=== PATIENT | female | born 1940 | race Caucasian/White ===

== ENCOUNTER 2019-01-05 05:51 | Emergency (ER) | payer OTHER, MEDICARE, BC ==
--- NOTE | 2019-01-05 06:41 | EDM.PDOC ---
ED HPI GENERAL MEDICAL PROBLEM - General Chief Complaint: General Stated Complaint: shoulder pain s/p fall Time Seen by Provider: 01/05/19 06:20 Source of Information: Reports: Patient History Limitations: Reports: No Limitations - History of Present Illness INITIAL COMMENTS - FREE TEXT/NARRATIVE: This patient is a 78 year old female that presents to the ER. Patient reports that she was walking into work when she tripped and fell into the brick on her left shoulder. Patient does NOT take blood thinners. Patient reports only pain complaint is to the right upper arm. Patient denies hitting head, loc, n, v, vision changes, headache, dizziness, lightheaded, neck pain, back pain, chest pain, shortness of breath, abd pain, hp/pelvis pain, legs pain. Patient is alert and oriented. She is conversing in full and complete sentences without difficulty. She is ambulatory in the department without issues. Onset: Today Onset Date: 01/05/19 Onset Time: 05:45 Location: Reports: Upper Extremity, Right Front/Back Body Image: 1 - pain, tenderness. Quality: Reports: Ache Severity: Moderate Improves with: Reports: Immobilization Worsens with: Reports: Movement Associated Symptoms: Denies: Confusion, Chest Pain, Cough, cough w sputum, Diaphoresis, Fever/Chills, Headaches, Loss of Appetite, Malaise, Nausea/Vomiting , Rash, Seizure, Shortness of Breath, Syncope, Weakness Right Upper Arm Pain Score (Numeric/FACES): 7 - Related Data Allergies Allergy/AdvReac Type Severity Reaction Status Date / Time No Known Allergies Allergy Verified 01/05/19 05:52 Home Meds: Home Meds Calcium Carb & Citrate/Vit D3 [Calcium + Vitamin D3 Caplet] 1 each PO DAILY 09/17 [History] Hydrocodone/Acetaminophen [[place] 5-325] 1 tab PO Q4H PRN 07/09/13 [History] Ibuprofen 800 mg PO BID PRN 07/09/13 [History] Lisinopril/Hydrochlorothiazide [Lisinopril-Hctz 20-25 mg Tab] 1 each PO DAILY [History] Metoprolol Succinate 100 mg PO BID 07/09/13 [History] Multivitamin [Multi Vitamin Daily] 1 each PO DAILY 07/09/13 [History] cloNIDine [cloNIDine HCl] 0.1 mg PO TID 07/09/13 [History] traMADol [Ultram] 50 mg PO Q6H PRN 07/09/13 [History] Past Medical History Cardiovascular History: Reports: High Cholesterol, Hypertension - Past Surgical History HEENT Surgical History: Reports: Tonsillectomy GI Surgical History: Reports: Bariatric Procedure Female Surgical History: Reports: Hysterectomy Musculoskeletal Surgical History: Reports: Knee Replacement, Shoulder Replacement Social & Family History - Family History Family Medical History: Noncontributory - Tobacco Use Smoking Status *Q: Never Smoker Second Hand Smoke Exposure: No ED ROS GENERAL - Review of Systems Review Of Systems: See Below Constitutional: Reports: No Symptoms HEENT: Reports: No Symptoms Respiratory: Reports: No Symptoms Cardiovascular: Reports: No Symptoms Endocrine: Reports: No Symptoms GI/Abdominal: Reports: No Symptoms : Reports: No Symptoms Musculoskeletal: Reports: Shoulder Pain (right anterior), Arm Pain (right upper arm) Skin: Reports: No Symptoms Neurological: Reports: No Symptoms Psychiatric: Reports: No Symptoms Hematologic/Lymphatic: Reports: No Symptoms Immunologic: Reports: No Symptoms ED EXAM, GENERAL - Physical Exam Exam: See Below Exam Limited By: No Limitations General Appearance: Alert, WD/WN, No Apparent Distress Eye Exam: Left Eye: Other (periorbital inferior eccyhmosis OLD), Bilateral Eye: EOMI, Normal Inspection, PERRL Ears: Normal External Exam, Normal Canal, Hearing Grossly Normal, Normal TMs Ear Exam: Bilateral Ear: Auricle Normal, Canal Normal, TM normal Nose: Normal Inspection, Normal Mucosa, No Blood Throat/Mouth: Normal Inspection, Normal Lips, Normal Teeth, Normal Gums, Normal Oropharynx, Normal Voice, No Airway Compromise Head: Atraumatic, Normocephalic. No: Facial Swelling, Facial Tenderness, Sinus Tenderness Neck: Normal Inspection, Non-Tender, Full Range of Motion Respiratory/Chest: No Respiratory Distress, Lungs Clear, Normal Breath Sounds, No Accessory Muscle Use, Chest Non-Tender Cardiovascular: Normal Peripheral Pulses, Regular Rate, Rhythm, No Edema, No Gallop, No JVD, No Murmur Peripheral Pulses: 2+: Brachial (L), Brachial (R), Radial (L), Radial (R), Posterior Tibial (L), Posterior Tibial (R) GI/Abdominal: Normal Bowel Sounds, Soft, Non-Tender, No Organomegaly, No Distention, No Abnormal Bruit, No Mass, Pelvis Stable Back Exam: Normal Inspection, Full Range of Motion. No: CVA Tenderness (L), CVA Tenderness (R), Decreased Range of Motion, Muscle Spasm, Paraspinal Tenderness, Vertebral Tenderness Extremities: No Pedal Edema, Normal Capillary Refill, Limited Range of Motion ( right shoulder due to pain. Has in arm sling position), Other (Pain, tenderness , decreased ROM due to pain to the right proximal upper arm, right anterior shoulder. No obvious dislocation) Neurological: Alert, Oriented, Normal Cognition, Normal Gait, No Motor/Sensory Deficits Psychiatric: Normal Affect, Normal Mood Skin Exam: Warm, Dry, Intact, Normal Color, No Rash Lymphatic: No Adenopathy Course - Vital Signs Last Recorded V/S: Last Vital Signs Temp 98.4 F 01/05/19 05:53 Pulse 90 01/05/19 05:53 Resp 18 01/05/19 05:53 BP 180/87 H 01/05/19 05:53 Pulse Ox 98 01/05/19 05:53 - Orders/Labs/Meds Orders: Active Orders 24 hr Category Date Time Status Shoulder Comp Rt [CR] Stat Exams 01/05/19 06:31 Taken - Radiology Interpretation Free Text/Narrative:: Right shoulder xray: No dislocation. There is proximal humerus fx, mildly displaced. Comminuted. - Re-Assessments/Exams Free Text/Narrative Re-Assessment/Exam: 01/05/19 0630 I called and spoke to Dr. Vidales orthopedic at [facility]. He reports to arm sling and discharge to see orthopedic. Nonoperative. Departure - Departure Time of Disposition: 06:42 Disposition: Home, Self-Care 01 Condition: Fair Clinical Impression: Fracture, humerus closed Qualifiers: Encounter type: initial encounter Humerus Location: proximal Fracture morphology: other fracture Fracture alignment: nondisplaced Laterality: right Qualified Code(s): S42.294A - Other nondisplaced fracture of upper end of right humerus, initial encounter for closed fracture Fall Qualifiers: Encounter type: initial encounter Qualified Code(s): W19.XXXA - Unspecified fall, initial encounter - Discharge Information *PRESCRIPTION DRUG MONITORING PROGRAM REVIEWED*: Not Applicable *COPY OF PRESCRIPTION DRUG MONITORING REPORT IN PATIENT NOEMI: Not Applicable Instructions: Humerus Fracture Treated With Immobilization, [id number], Fall Prevention in Hospitals, Adult Referrals: Joseph Beauchamp MD [Primary Care Provider] - Forms: ED Department Discharge Additional Instructions: Followup with orthopedic: Call Dr. Garcia Sunday to be seen this week Followup with your primary care provider Return to the ER for worsening of condition or any emergent concerns Rest Ice Elevate Sling in place May take your [place] every 6 hours as needed for pain - My Orders Last 24 Hours: My Active Orders 01/05/19 06:31 Shoulder Comp Rt [CR] Stat - Assessment/Plan Last 24 Hours: My Active Orders 01/05/19 06:31 Shoulder Comp Rt [CR] Stat Plan: PLEASE SEE RN NOTE FOR PFSH.
== END 2019-01-05 06:55 | disposition home or self-care (01) ==
LOC: CC.ED 05:51
DX: S42.294A Other nondisplaced fracture of upper end of right humerus, initial encounter for closed fracture (principal); I10 Essential (primary) hypertension; Z96.619 Presence of unspecified artificial shoulder joint; Z79.899 Other long term (current) drug therapy; W01.10XA Fall on same level from slipping, tripping and stumbling with subsequent striking against unspecified object, initial encounter; Y99.0 Civilian activity done for income or pay
CPT/HCPCS: 73030-RT; 99283-25

== ENCOUNTER 2019-06-24 07:24 | Emergency (ER) | payer MEDICARE, BC ==
[2019-06-24 07:52] LABS: PTT,PARTIAL THROMBOPLSTIN TIME 26.1 SEC (23.2-32.3)
[2019-06-24 07:59] LABS: CHLORIDE,CL 106 mEq/L (98-106); SODIUM,NA 140 mEq/L (136-145)
[2019-06-24] MEDS ORDERED: cloNIDine 0.1 MG Tab PO ONE (08:07)
[2019-06-24] MEDS ORDERED: Metoprolol Succinate 100 MG Tab.ER PO ONE (08:09)
[2019-06-24] MEDS ORDERED: Hydrochlorothiazide 25 MG Tab PO ONE (08:10)
[2019-06-24] MEDS ORDERED: Lisinopril 20 MG Tab PO ONE (08:11)
--- NOTE | 2019-06-24 08:20 | EDM.PDOC ---
ED HPI GENERAL MEDICAL PROBLEM - General Chief Complaint: Neurological Problem Stated Complaint: FACE NUMB/HAND TINGLING Time Seen by Provider: 06/24/19 08:00 Source of Information: Reports: Patient History Limitations: Reports: No Limitations - History of Present Illness INITIAL COMMENTS - FREE TEXT/NARRATIVE: Alesia is a pleasant 78 year old female, with PMH of hypertension and CKD, who presents ambulatory to the ED with c/o intermittent right upper extremity and right facial numbness/tingling. Last known well yesterday evening 06/23/2019 at 2000. She reports initially she felt as if her whole arm was numb, but now it is just her finger tips. She reports she just "did not feel well enough to go to work this morning." She reports she is otherwise feeling well. Denies any dizziness, malaise, weakness, headache, N/V/D, chest pain, shortness of breath. No recent illness. Denies any history of CVA. Did not take her BP medications this morning. NIH 1 due to visual field defect. Onset Date: 06/23/19 Onset Time: 20:00 Duration: Intermittent Location: Reports: Face, Lower Extremity, Right Associated Symptoms: Reports: No Other Symptoms. 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: EKG, IV/IO - Related Data Allergies Allergy/AdvReac Type Severity Reaction Status Date / Time No Known Allergies Allergy Verified 06/24/19 07:48 Home Meds: Home Meds Calcium Carb & Citrate/Vit D3 [Calcium + Vitamin D3 Caplet] 1 each PO DAILY 09/17 [History] Hydrocodone/Acetaminophen [[place] 5-325] 1 tab PO Q4H PRN 07/09/13 [History] Ibuprofen 800 mg PO BID PRN 07/09/13 [History] Lisinopril/Hydrochlorothiazide [Lisinopril-Hctz 20-25 mg Tab] 1 each PO DAILY [History] Metoprolol Succinate 100 mg PO BID 07/09/13 [History] Multivitamin [Multi Vitamin Daily] 1 each PO DAILY 07/09/13 [History] cloNIDine [cloNIDine HCl] 0.1 mg PO TID 07/09/13 [History] traMADol [Ultram] 50 mg PO Q6H PRN 07/09/13 [History] Past Medical History HEENT History: Reports: Impaired Vision Other HEENT History: wears glasses Cardiovascular History: Reports: High Cholesterol, Hypertension - Past Surgical History HEENT Surgical History: Reports: Tonsillectomy GI Surgical History: Reports: Bariatric Procedure Female Surgical History: Reports: Hysterectomy Musculoskeletal Surgical History: Reports: Knee Replacement, Shoulder Replacement Social & Family History - Family History Family Medical History: Noncontributory - Tobacco Use Smoking Status *Q: Never Smoker Second Hand Smoke Exposure: No - Caffeine Use Caffeine Use: Reports: None - Recreational Drug Use Recreational Drug Use: No ED ROS GENERAL - Review of Systems Review Of Systems: See Below Constitutional: Denies: Fever, Malaise, Weakness, Fatigue, Diaphoresis, Decreased Appetite, Weight Loss HEENT: Reports: Vision Change (right eye). Denies: Ear Pain, Eye Discharge, Eye Pain, Rhinitis, Sinus Problem, Throat Pain Respiratory: Denies: Shortness of Breath, Wheezing, Pleuritic Chest Pain, Cough , Sputum, Hemoptysis Cardiovascular: Reports: No Symptoms. Denies: Chest Pain, Dyspnea on Exertion, Edema, Lightheadedness, Palpitations, Syncope Endocrine: Reports: No Symptoms. Denies: Fatigue, High Glucose, Low Glucose, Polydypsia, Polyuria GI/Abdominal: Reports: No Symptoms. Denies: Abdominal Pain, Constipation, Diarrhea, Decreased Appetite, Hematemesis, Hematochezia, Melena, Nausea, Vomiting : Reports: No Symptoms. Denies: Dysuria, Frequency, Urgency Musculoskeletal: Reports: No Symptoms. Denies: Neck Pain, Arm Pain, Leg Pain Skin: Reports: No Symptoms Neurological: Reports: Numbness, Paresthesia, Tingling. Denies: Confusion, Dizziness, Headache, Pre-Existing Deficit, Tremors, Difficulty Walking, Weakness , Change in Speech, Gait Disturbance Psychiatric: Denies: Anxiety Hematologic/Lymphatic: Reports: No Symptoms Immunologic: Reports: No Symptoms ED EXAM, NEURO - Physical Exam Exam: See Below Exam Limited By: No Limitations General Appearance: Alert, WD/WN, No Apparent Distress Eye Exam: Right Eye: Vision Changes (unable to visualize from right periphery), Bilateral Eye: EOMI, Normal Fundi, Normal Inspection Ears: Normal External Exam, Normal Canal, Hearing Grossly Normal, Normal TMs Nose: Normal Inspection, Normal Mucosa, No Blood Throat/Mouth: Normal Inspection, Normal Lips, Normal Teeth, Normal Gums, Normal Oropharynx, Normal Voice, No Airway Compromise Head Exam: Atraumatic, Normocephalic Neck: Normal Inspection, Supple, Non-Tender, Full Range of Motion Respiratory/Chest: No Respiratory Distress, Lungs Clear, Normal Breath Sounds, No Accessory Muscle Use, Chest Non-Tender Cardiovascular: Normal Peripheral Pulses, Regular Rate, Rhythm, No Edema, No Gallop, No JVD, No Murmur, No Rub GI/Abdominal: Normal Bowel Sounds, Soft, Non-Tender, No Organomegaly, No Distention, No Abnormal Bruit, No Mass Neurological: Alert, Normal Mood/Affect, Normal Dorsiflexion, CN II-XII Intact, Normal Plantar Flexion, Normal Gait, Normal Reflexes, Oriented x 3, Abnormal Sensation, Other (N/T to right finger tips, able to differentiate sharp/dull on RUE). No: Abnormal Finger to Nose, Abnormal Light Touch, Abnormal Motor, Abnormal Pin Prick, Tremor Back Exam: Normal Inspection, Full Range of Motion, NT Extremities: Normal Inspection, Normal Range of Motion, Non-Tender, No Pedal Edema, Normal Capillary Refill Psychiatric: Normal Affect, Normal Mood Skin Exam: Warm, Dry, Intact, Normal Color, No Rash Course - Vital Signs Last Recorded V/S: Last Vital Signs Temp 97.0 F 06/24/19 07:30 Pulse 60 06/24/19 08:19 Resp 20 06/24/19 07:30 BP 192/92 H 06/24/19 08:19 Pulse Ox 98 06/24/19 07:30 - Orders/Labs/Meds Orders: Active Orders 24 hr Category Date Time Status Head wo Cont [CT] Routine Exams 06/24/19 Taken Labs: Laboratory Tests 06/24/19 06/24/19 06/24/19 Range/Units 07:38 07:38 07:38 WBC 5.6 (5.0-10.0) 10^3/uL RBC 4.52 (4.00-5.50) 10^6/uL Hgb 11.5 L (12.0-16.0) g/dL Hct 38.7 (37.0-47.0) % MCV 85.6 (82.0-94.0) fL MCH 25.4 L (27.0-32.0) pg MCHC 29.7 L (33.0-38.0) g/dL RDW Coeff of Anderson 15.1 H (11.0-15.0) % Plt Count 302 (150-400) 10^3/uL Neut % (Auto) 68.7 (35-85) % Lymph % (Auto) 18.1 (10-55) % Sutton % (Auto) 8.4 (0-16) % Eos % (Auto) 4.3 (0-5) % Baso % (Auto) 0.5 (0-3) % Neut # (Auto) 3.82 (1.80-7.00) 10^3/uL Lymph # (Auto) 1.01 (1.00-4.80) 10^3/uL Sutton # (Auto) 0.47 (0.00-0.80) 10^3/uL Eos # (Auto) 0.24 (0.00-0.45) 10^3/uL Baso # (Auto) 0.03 10^3/uL PT 10.0 (9.7-12.3) SEC INR 0.97 (0.92-1.18) APTT 26.1 (23.2-32.3) SEC Sodium 140 (136-145) mEq/L Potassium 4.7 (3.5-5.0) mEq/L Chloride 106 (98-106) mEq/L Carbon Dioxide 24 (21-32) mmol/L BUN 30 H (7-18) mg/dL Creatinine 2.3 H (0.6-1.0) mg/dL Est Cr Clr Drug Dosing 17.85 mL/min Estimated GFR (MDRD) 20 L (>=60) mL/min Glucose 96 (75-99) mg/dL Calcium 8.5 (8.4-10.1) mg/dL Creatine Kinase 85 (21-215) U/L Troponin I < 0.017 (0.00-0.06) ng/mL Meds: Medications Discontinued Medications Generic Name Dose Route Start Last Admin Trade Name Freq PRN Reason Stop Dose Admin Aspirin 324 mg 06/24/19 08:51 06/24/19 09:20 Aspirin PO 06/24/19 08:52 324 mg ONETIME ONE Administration Clonidine HCl 0.1 mg 06/24/19 08:07 06/24/19 08:18 Catapres PO 06/24/19 08:08 0.1 mg STAT ONE Administration Hydrochlorothiazide 25 mg 06/24/19 08:10 06/24/19 08:19 Hydrochlorothiazide PO 06/24/19 08:11 25 mg ONETIME ONE Administration Lisinopril 20 mg 06/24/19 08:11 06/24/19 08:19 Prinivil PO 06/24/19 08:12 20 mg STAT ONE Administration Metoprolol Succinate 100 mg 06/24/19 08:09 06/24/19 08:19 Toprol Xl PO 06/24/19 08:10 100 mg ONETIME ONE Administration - Radiology Interpretation Free Text/Narrative:: Decreased density left occipital lobe concerning for ischemia. Left HOGSHEAD INSPECTOR CT Results Date: 06/24/19 CT Results Time: 08:26 - Re-Assessments/Exams Free Text/Narrative Re-Assessment/Exam: 06/24/19 08:[address] findings with patient. Consulted with Dr. Grimm (stroke neurologist) at [facility], who reviewed CT. Recommends aspirin and consultation with hospitalist for transfer. Discussed case with Dr. Johnson (hospitalist) who accepted the patient for transfer. Notified by [facility] that they do not have any beds available and patient will have to wait until they have available beds. Patient will stay in Extended ED until able to transfer. Patient is not candidate for TPA as she is outside of the recommended time frame with last known well > 12 hours prior to presentation. Risks and benefits of transfer discussed with patient. Risks of transfer include worsening of condition, , and MVA enroute. Benefits of transfer include higher level of care with neurologic consultation. Risks on nontransfer include worsening of condition, , and no specialized consultation. Benefits of nontransfer include convenience. Patient verbalized understanding and was agreeable to transfer. Departure - Departure Time of Disposition: 11:00 Disposition: DC/Tfer to Acute Hospital 02 Condition: Fair Clinical Impression: Arterial ischemic stroke, HOGSHEAD INSPECTOR (posterior cerebral artery), left, acute, Chronic kidney disease, Hypertension - Discharge Information *PRESCRIPTION DRUG MONITORING PROGRAM REVIEWED*: Not Applicable *COPY OF PRESCRIPTION DRUG MONITORING REPORT IN PATIENT NOEMI: Not Applicable Referrals: PCP,Unknown [Primary Care Provider] - Forms: ED Department Discharge Sepsis Event Note - Evaluation Sepsis Screening Result: No Definite Risk - Focused Exam Vital Signs: Vital Signs Temp Pulse Pulse Resp BP BP Pulse Ox 06/24/19 08:19 60 192/92 H 06/24/19 08:18 192/92 H 06/24/19 07:30 97.0 F 76 20 199/120 H 98 Date Exam was Performed: 06/24/19 Time Exam was Performed: 13:11 - Problem List & Annotations (1) Arterial ischemic stroke, HOGSHEAD INSPECTOR (posterior cerebral artery), left, acute SNOMED Code(s): 672559655, 079175967 Code(s): I63.532 - CEREB INFRC D/T UNSP OCCLS OR STENOS OF LEFT POST CEREB ART Status: Acute (2) Hypertension SNOMED Code(s): 08614139 Code(s): I10 - ESSENTIAL (PRIMARY) HYPERTENSION Status: Acute (3) Chronic kidney disease SNOMED Code(s): 622686764 Code(s): N18.9 - CHRONIC KIDNEY DISEASE, UNSPECIFIED Status: Acute - Problem List Review Problem List Initiated/Reviewed/Updated: Yes - My Orders Last 24 Hours: My Active Orders 06/24/19 Head wo Cont [CT] Routine - Assessment/Plan Last 24 Hours: My Active Orders 06/24/19 Head wo Cont [CT] Routine Assessment:: Acute ischemic HOGSHEAD INSPECTOR stroke, left Hypertension Chronic Kidney Disease Plan: Patient will be transferred to [facility] via [facility] with cardiac monitoring enroute. Accepting provider Dr. Johnson. Patient remained NSR throughout extended ED stay. BP remained elevated, despite administration of home BP medications. Patient was given 324 mg aspirin. She remained alert and oriented throughout stay, with no neurologic changes. NIH remained 1 throughout ED stay. She was discharged from facility in satisfactory condition.
[2019-06-24] MEDS ORDERED: Aspirin 81 MG Tab.Chew PO ONE (08:51)
== END 2019-06-24 11:00 ==
LOC: CC.ED 07:24
DX: I63.532 Cerebral infarction due to unspecified occlusion or stenosis of left posterior cerebral artery (principal); R29.701 NIHSS score 1; I12.9 Hypertensive chronic kidney disease with stage 1 through stage 4 chronic kidney disease, or unspecified chronic kidney disease; N18.9 Chronic kidney disease, unspecified; Z79.899 Other long term (current) drug therapy
CPT/HCPCS: 36415; 70450; 80048; 82550; 84484; 85025; 85610; 85730; 93005; 93010; 99284; 99285-25; A9270-GY